=== PATIENT | female | born 1970 | race Caucasian/White ===

== ENCOUNTER 2017-01-16 11:59 | Emergency (ER) | payer SELFPAY ==
[2017-01-16 13:47] LABS: BASOPHILS 0.3 %; BASOPHILS ABSOLUTE 0.02 10/3/uL (0.0-0.16); EOSINOPHILS 0.4 %; EOSINOPHILS ABSOLUTE 0.03 10/3/uL (0.0-0.53); ER CBC TAT 0 Hrs 07 Mins; HEMOGLOBIN 13.6 g/dL (12.0-16.0); IMMATURE GRANULOCYTES 0.3 %; IMMATURE GRANULOCYTES ABSOLUTE 0.02 10/3/uL (0.0-0.11); LYMPHOCYTES 16.4 %; LYMPHOCYTES ABSOLUTE 1.19 10/3/uL (0.67-4.30); MEAN CORPUS HGB CONC 35.8 g/dL (32.0-36.0); MEAN CORPUSCULAR HEMOGLOB 33.4 pg (26.0-34.0); MEAN PLATELET VOLUME 10.6 fL (9.2-13.0); MONOCYTES 1.9 %; MONOCYTES ABSOLUTE 0.14 10/3/uL (0.21-1.20); NEUTROPHILS 80.7 %; NEUTROPHILS ABSOLUTE 5.85 10/3/uL (2.02-8.40); PLATELET COUNT 170 10/3/uL (150-400); RBC DISTRIBUTION WIDTH 11.6 % (12.0-16.0); RED CELL COUNT 4.07 10/6/uL (4.0-5.6); WHITE BLOOD CELLS 7.3 10/3/uL (4.5-10.5)
[2017-01-16 13:48] LABS: MANUAL DIFF NO %; MEAN CORPUSCULAR VOLUME 93.4 fL (80-100)
[2017-01-16 14:00] LABS: BUN (BLOOD UREA NITROGEN) 10 MG/DL (6-23); CHLORIDE, SERUM 102 MMOL/L (96-112); CO2 (CARBON DIOXIDE) 28 MMOL/L (24-34); CREATININE 0.61 MG/DL (0.55-1.02); GFR AFRICAN AMERICAN 124 ML/MIN (>=60); GFR NON AFRICAN AMERICAN 107 ML/MIN (>=60); POTASSIUM, SERUM 3.8 MMOL/L (3.5-5.3); SGOT(AST) 20 U/L (5-40); SGPT(ALT) 24 U/L (5-65); SODIUM, SERUM 139 MMOL/L (135-148); TOTAL BILIRUBIN 0.3 MG/DL (0-1.2); TOTAL PROTEIN 6.8 G/DL (6.0-8.5)
[2017-01-16 14:01] LABS: A/G RATIO 1.1 (0.7-1.9); ALBUMIN 3.5 G/DL (3.5-5.0); ALKALINE PHOSPHATASE 125 U/L (45-117); CALCIUM, SERUM 8.5 MG/DL (8.5-10.4); GLOBULIN 3.3 G/DL (2.5-4.1); GLUCOSE, SERUM 350 MG/DL (60-99)
[2017-01-16 14:24] LABS: ASCORBIC ACID (UR NOT ORDER) NEG (NEG); BILIRUBIN, URINE NEGATIVE (NEG); KETONE, URINE NEGATIVE (NEG); LEUKOCYTE ESTERASE(NOT OR NEG (NEG); NITRITE (URINE) NEG (NEG); WBC (NOT ORDERED) (RFLEX) 2 (0-5)
[2017-01-16 14:26] LABS: ER URINALYSIS TAT 0 Hrs 44 Mins
== END 2017-01-16 15:03 | disposition home or self-care (01) ==
LOC: ER 11:59
PROVIDERS: Emergency Medicine
DX: E11.649 Type 2 diabetes mellitus with hypoglycemia without coma (principal); Z88.0 Allergy status to penicillin
CPT/HCPCS: 80053; 81001; 82962; 85025; 99285